=== PATIENT | female | born 1955 | race Caucasian/White ===

== ENCOUNTER 2021-04-05 13:14 | Outpatient (CLI) | payer MEDICARE, SELFPAY ==
--- NOTE | ~2021-04-05 | XR_ITS ---
EXAMINATION: XR knee RT 3V DATE: 04/05/2021 13:46 INDICATION: Right knee pain TECHNIQUE: Three views of the right knee were obtained. COMPARISON: 07/29/2009 FINDINGS: Alignment is normal. No fracture or osteochondral lesion. There is chronic irregularity of the anterior tibial tubercle, consistent with prior injury. Joint spaces are normal with no erosions. No joint effusion/synovitis. Soft tissues are unremarkable. IMPRESSION: 1. No acute osseous abnormality. Reviewed, dictated and finalized at location A.
== END 2021-04-05 13:15 ==
PROVIDERS: PCP Physician Assistant; Visit Provider Physician Assistant
DX: M25.561 Pain in right knee (principal)
CPT/HCPCS: 73562

== ENCOUNTER 2021-11-28 12:50 | Emergency (ER) | payer MEDICARE, SELFPAY ==
--- NOTE | ~2021-11-28 | XR_ITS ---
EXAMINATION: XR foot LT min 3V DATE: 11/28/2021 13:25 INDICATION: Left foot injury. TECHNIQUE: 4 views of left foot were obtained. COMPARISON: None. FINDINGS: Bone alignment is normal. No fracture. 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 There is an enthesophyte at posterior aspect of calcaneal tuberosity. IMPRESSION: 1. No fracture. Reviewed, dictated and finalized at location A. IMPRESSION: 1. No fracture.
[2021-11-28 13:12] VITALS: BP 164/64; PULSE 61; RESP 18; TEMP 36.6; O2SAT 100
--- NOTE | 2021-11-28 13:12 | ED.LOWEXIN ---
HPI - Extremity Injury (Lower) General Chief Complaint: Extremity Injury, Lower Stated Complaint: lt foot injury Time Seen by Provider: 11/28/21 13:12 Source: patient Mode of arrival: ambulatory Limitations: no limitations History of Present Illness HPI Narrative: 66-year-old female presents with complaint of pain to dorsal aspect of left foot after dropping a crystal onto left foot this morning. States that cross weight approximately 5 pounds. Ambulatory with limp. Bruising noted to dorsal aspect left foot. Patient concerned for fracture. Distal neurovascularly intact. All systems reviewed and negative except as noted above. Related Data Home Medications Medication Instructions Recorded Confirmed aripiprazole 15 mg DAILY 11/28/21 11/28/21 atorvastatin 20 mg DAILY 11/28/21 11/28/21 carbamazepine 200 mg TID 11/28/21 11/28/21 hydroxyzine HCl 25 mg TID 11/28/21 11/28/21 metoprolol tartrate 25 mg BID 11/28/21 11/28/21 Allergies Allergy/AdvReac Type Severity Reaction Status Date / Time hydrocodone Allergy Mild Dyspnea / Unverified 01/08/19 15:27 SOB iodine Allergy Mild Dyspnea / Verified 11/28/21 13:19 SOB meperidine Allergy Mild Dyspnea / Verified 01/08/19 15:27 SOB morphine Allergy Mild Dyspnea / Verified 01/08/19 15:27 SOB Sulfa (Sulfonamide Allergy Mild Hives / Unverified 01/08/19 15:27 Antibiotics) Red Face SINUS MEDICATIONS Allergy Mild Uncoded 12/01/07 15:36 Review of Systems Review of Systems: CONSTITUTIONAL: Denies fever, chills, or sweats. EYES: Denies visual changes, redness, or discharge. ENT: Denies rhinorrhea, congestion, sore throat, or otalgia. CARDIOVASCULAR: Denies chest pain, palpitations, or edema. RESPIRATORY: Denies cough or dyspnea. GASTROINTESTINAL: Denies abdominal pain, nausea, vomiting, or diarrhea. GENITOURINARY: Denies dysuria or hematuria. SKIN: Denies rash or itching. MUSCULOSKELETAL: Denies back pain, joint pain, or myalgia. Reports pain and bruising to left foot. NEUROLOGIC: Denies headache, numbness, or weakness. PSYCHIATRIC: Denies anxiety or depression. All other systems reviewed are negative, except as documented in HPI. PMFSH Comments At time of signature, agree with nursing past medical, surgical, social and family history. There is no relevant family history pertinent to the presenting complaint. Exam Narrative: GENERAL: This is a well-nourished, well-developed patient, in no apparent distress. HEAD: normocephalic, atraumatic. EYES: PERRL. Sclera clear/white. Vision is grossly intact. EARS: External ears normal NOSE: External nose normal NECK: Neck supple, non-tender without lymphadenopathy, masses or thyromegaly. CARDIOVASCULAR: Regular rate and rhythm without murmurs, gallops, or rubs. RESPIRATORY: Clear to auscultation. Breath sounds equal bilaterally. No wheezes, rales, or rhonchi. SKIN: warm, Dry, intact with no suspicious lesions or rash, good texture and turgor. NEURO: awake, alert, and oriented to person, place and time. There were no obvious focal neurologic abnormalities. EXTREMITIES: Normal range of motion to all extremities. Contusion to dorsal aspect left foot. Skin intact. Tenderness on palpation. Range of motion and distal neurovascularly intact to left foot. Course Course Level of Care: Express Care Visit Vital Signs Vital signs: Vital Signs Temperature 36.6 C 11/28/21 13:12 Pulse Rate 61 11/28/21 13:12 Respiratory Rate 18 11/28/21 13:12 Blood Pressure 164/64 H 11/28/21 13:12 Pulse Oximetry 100 11/28/21 13:12 Temperature 36.6 C 11/28/21 13:12 Pulse Rate 61 11/28/21 13:12 Respiratory Rate 18 11/28/21 13:12 Blood Pressure 164/64 H 11/28/21 13:12 Pulse Oximetry 100 11/28/21 13:12 Reviewed MDM - Extremity Injury (Lower) MDM Narrative Medical decision making narrative: Discussed x-ray results with patient. Recommend ibuprofen or Tylenol, elevation and ice. Offered patient crutche
== END 2021-11-28 13:40 | disposition home or self-care (01) ==
PROVIDERS: Emergency Provider Nurse Practitioner Family; PCP Physician Assistant
DX: S90.32XA Contusion of left foot, initial encounter (principal); W20.8XXA Other cause of strike by thrown, projected or falling object, initial encounter; E78.00 Pure hypercholesterolemia, unspecified; I10 Essential (primary) hypertension
CPT/HCPCS: 73630; 99213; G0463

== ENCOUNTER 2023-10-20 22:35 | Emergency (ER) | payer MEDICARE, SELFPAY ==
[2023-10-20 22:37] VITALS: BP 194/80; PULSE 78; RESP 16; TEMP 36.7; O2SAT 100
--- NOTE | 2023-10-20 22:58 | ED.GENADULT ---
HPI - General Adult General Chief complaint: Recheck/Abnormal Lab/Rx Stated complaint: HTN Time Seen by Provider: 10/20/23 22:48 Source: patient Mode of arrival: ambulatory Limitations: no limitations History of Present Illness HPI narrative: This is a 68-year-old female who presents to the ED with chief complaint of high blood pressure. Reports that she had nurse come out through the her insurance agency to do a wellness examination. they noted that her blood pressure was severely high and recommended to contact her doctor. Patient states that she then obtained a blood pressure cuff and had been taking her blood pressure home and noticed that he got over 200 systolic so she decided to come here. completely asymptomatic. States that if I weren't so anxious about blood pressure I feel well enough to republican. Denies chest pain, shortness of breath, numbness, weakness, headache, speech change or vision change Related Data Home Medications Medication Instructions Recorded Confirmed aripiprazole 15 mg tablet 15 mg DAILY 11/28/21 10/20/23 atorvastatin 20 mg tablet 20 mg DAILY 11/28/21 10/20/23 carbamazepine 200 mg tablet 200 mg TID 11/28/21 10/20/23 hydroxyzine HCl 25 mg tablet 25 mg TID 11/28/21 10/20/23 metoprolol tartrate 25 mg tablet 25 mg BID 11/28/21 10/20/23 Allergies Allergy/AdvReac Type Severity Reaction Status Date / Time hydrocodone Allergy Mild Dyspnea / Verified 10/20/23 22:48 SOB iodine Allergy Mild Dyspnea / Verified 10/20/23 22:48 SOB meperidine Allergy Mild Dyspnea / Verified 10/20/23 22:48 SOB morphine Allergy Mild Dyspnea / Verified 10/20/23 22:48 SOB Sulfa (Sulfonamide Allergy Mild Hives / Verified 10/20/23 22:48 Antibiotics) Red Face SINUS MEDICATIONS Allergy Mild Unknown Uncoded 10/20/23 22:48 Review of Systems Review of Systems: All systems as dictated in HPI Exam Narrative: GENERAL: Well-appearing, well-nourished, and in no acute distress. HEAD: Normocephalic, atraumatic. EYES: PERRLA and EOMI. ENT: Nares clear, no rhinorrhea or epistaxis. Mucous membranes moist. Oropharynx without tonsillar hypertrophy exudate or other lesions. NECK: Supple. No adenopathy or masses. CHEST: No respiratory distress. Clear to auscultation. No wheezes rales or rhonchi HEART: Regular rate and rhythm. No murmur heard. Normal peripheral pulses. ABDOMEN: Soft, nontender, nondistended, normal active bowel sounds. MSK: Normal range of motion. No edema. SKIN: Warm, dry, no rash. NEURO: Alert and oriented x3. No focal deficits. PSYCH: Normal mood and affect. Course Vital Signs Vital signs: Vital Signs Temperature 98.0 F 10/20/23 22:37 Pulse Rate 78 10/20/23 22:37 Respiratory Rate 16 10/20/23 22:37 Blood Pressure 194/80 H 10/20/23 22:37 Pulse Oximetry 100 10/20/23 22:37 Oxygen Delivery Room Air 10/20/23 22:37 Temperature 98.0 F 10/20/23 22:37 Pulse Rate 78 10/20/23 22:37 Respiratory Rate 16 10/20/23 22:37 Blood Pressure 194/80 H 10/20/23 22:37 Pulse Oximetry 100 10/20/23 22:37 Oxygen Delivery Room Air 10/20/23 22:37 Medical Decision Making MDM Narrative Medical decision making narrative: This is a 68-year-old female who presents to the ED for asymptomatic hypertension. She was worried that her blood pressure was fine she has never seen this before. Vitals show BP of 194/80. Vitals are otherwise normal. exam is benign. 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 States this is not new. Other than her anxiety, she is completely asymptomatic. we discussed follow-up with PCP to manage the blood pressures and that we should not drop her blood pressure down here. Pt will be discharged in stable condition. Return precautions given and supportive measures discussed. Pt is understanding and agreeable with plan for discharge and follow-up with PCP. Vital Signs Vital Signs:
== END 2023-10-20 23:41 | disposition home or self-care (01) ==
PROVIDERS: Emergency Provider Physician Assistant; PCP Physician Assistant
DX: I10 Essential (primary) hypertension (principal); G51.0 Bell's palsy
CPT/HCPCS: 99281

== ENCOUNTER 2025-06-17 14:40 | Outpatient (CLI) | payer MEDICARE, SELFPAY ==
[2025-06-17 15:16] LABS: Hematocrit 39.4 % (37.0-47.0); Hemoglobin 13.1 g/dL (12.0-15.0); Immature Granulocyte Percent A 0.2 % (0-0.5); Lymphocytes Absolute Auto 1.47 K/mm3 (0.9-3.2); Mean Corpuscular HGB Conc 33.2 g/dl (32-36); Mean Corpuscular Hemoglobin 28.7 pg (26-34); Mean Corpuscular Volume 86.4 fl (80-100); Nucleated Red Blood Cells Absolute Auto 0.000 K/mm3 (0.0-0.012); Nucleated Red Blood Cells Perc 0.0 % (0.0-0.2); Platelet Count Result 283 k/mm3 (150-375); Red Blood Count 4.56 M/mm3 (4.2-5.4); White Blood Count 5.4 K/mm3 (4.5-10.0)
[2025-06-17 15:30] LABS: Alanine Aminotransferase 23 U/L (6-35); Albumin Level 4.9 g/dL (3.5-5.1); Alkaline Phosphatase 129 U/L (38-126); Anion Gap 8 mmol/L (4-12); Aspartate Amino Transferase 38 U/L (14-36); Bilirubin,Total 0.5 mg/dL (0.2-1.3); Blood Urea Nitrogen 15 mg/dL (7-17); Calcium 9.6 mg/dL (8.4-10.2); Carbon Dioxide 25 mmol/L (22-30); Chloride 101 mmol/L (98-107); Cholesterol 231 mg/dL (0-200); Estimated Glomerular Filt Rate > 60; Glucose 105 mg/dL (65-110); HDL Direct 103 mg/dL; Potassium 4.9 mmol/L (3.4-5.0); Sodium 134 mmol/L (137-145); Total Protein 8.3 g/dL (6.3-8.2); Triglycerides 126 mg/dL (<150)
[2025-06-17 16:05] LABS: Thyroid Stimulating Hormone 2.470 uIU/mL (0.465-4.680)
[2025-06-17 16:25] LABS: Vitamin B12 270.0 pg/mL (239-931)
[2025-06-17 18:16] LABS: Hemoglobin A1C 5.5 % (<5.7)
[2025-06-19 12:08] LABS: ANA by IFA Rfx Titer/Pattern Positive (.)
== END 2025-06-17 14:41 | disposition home or self-care (01) ==
PROVIDERS: PCP Physician Assistant; Visit Provider Physician Assistant
DX: R53.83 Other fatigue (principal); E78.2 Mixed hyperlipidemia; R73.9 Hyperglycemia, unspecified; R76.89 Other specified abnormal immunological findings in serum
CPT/HCPCS: 36415; 80053; 80061; 82607; 83036; 84443; 85025; 86038; 86430